=== PATIENT | male | born 1960 | race Caucasian/White ===

== ENCOUNTER → 2018-09-10 | Outpatient (CLI) | payer BC | LOC: EDSTATUS 07:28 → GIMAGING 09:47 | PROVIDERS: ATTEND Family Medicine | DX: S22.42XA Multiple fractures of ribs, left side, initial encounter for closed fracture (principal); J98.4 Other disorders of lung | CPT/HCPCS: 71101-PO ==

== ENCOUNTER → 2018-12-02 | Outpatient (CLI) | payer BC | LOC: FIMAGING 11:29 ==